=== PATIENT | female | born 1945 | race Caucasian/White ===

== ENCOUNTER → 2024-07-28 14:58 | Outpatient (BNVA) | payer BC, SELFPAY | PROVIDERS: Referring Provider Specialist; Visit Provider Internal Medicine Cardiovascular Disease | DX: R07.9 Chest pain, unspecified (principal) | CPT/HCPCS: 93005 ==

== ENCOUNTER 2024-09-05 09:17 | Emergency (ER) | payer MEDICARE, SELFPAY ==
[2024-09-05 09:21] VITALS: BP 129/54; PULSE 74; RESP 18; TEMP 36.7; O2SAT 98; BMI 29.2
[2024-09-05 09:27] LABS: Glucose Point of Care 111 mg/dL (70-110)
--- NOTE | 2024-09-05 09:30 | CTR_ITS ---
PROCEDURE INFORMATION: Exam: CT Head Without Contrast Exam date and time: 09/05/2024 10:15 AM Age: 79 years old Clinical indication: Dizziness TECHNIQUE: Imaging protocol: Computed tomography of the head without contrast. Radiation optimization: All CT scans at this facility use at least one of these dose optimization techniques: automated exposure control; mA and/or kV adjustment per patient size (includes targeted exams where dose is matched to clinical indication); or iterative reconstruction. COMPARISON: No relevant prior studies available. RADIATION DOSE METRICS: Total DLP (mGy-cm): 1028.08 FINDINGS: Brain: There are bilateral periventricular white matter and centrum semiovale hypodensities, consistent with chronic ischemic small vessel disease. 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 No recent infarct, intracranial bleed or mass effect. Cerebral ventricles: No ventriculomegaly. Paranasal sinuses: Visualized sinuses are unremarkable. No fluid levels. Mastoid air cells: Visualized mastoid air cells are well aerated. Orbital cavities: Post bilateral cataract surgery. Bones: Unremarkable. No acute fracture. Soft tissues: Unremarkable. CT/CT head wo con* [id number] IMPRESSION: No large territorial infarct or intracranial bleed.
--- NOTE | 2024-09-05 09:31 | W.ED.WEAKNES ---
HPI - Weakness General: Chief complaint: Weakness Stated complaint: stroke like symptoms Time Seen by Provider: 09/05/24 09:19 History of Present Illness: 79-year-old female presents with some dizziness not feeling well with generalized weakness and malaise for couple days. She initially thought had some do at her inner ear and today when she got up she is kind of weak reports she has a weakness in her right leg and kind of fell get out of bed. She denies any injury when she fell. She was able to get up on her own, drive and walk in the ER without any difficulty. Patient is concerned because she has had stroke recently in the last year and just wants to be evaluated. Associated symptoms: Denies chest pain, fever(s), headache(s), nausea or vomiting Review of Systems Const: Reports: fatigue and malaise; Denies: fever(s) Card: Denies: chest pain or palpitations Resp: Denies: dyspnea GI: Denies: abdominal pain, nausea or vomiting : Denies: flank pain or difficulty voiding Skin/Breast: Denies: rash Neuro: Reports: dizziness; Denies: headache(s) or Slurred speech present [facility] PFSH: Medical History Bradycardia Social History Smoking and tobacco/nicotine status: never used tobacco/nicotine Physical Exam Const: COMMON NORMALS: no acute distress, average body habitus, patient oriented x3 and alert HENMT: COMMON NORMALS: atraumatic HEAD & SCALP: normal to inspection and atraumatic Eye: COMMON NORMALS: Equal, round and reactive pupils present and EOMs intact bilaterally PUPIL: Yes Equal, round and reactive pupils present Resp: COMMON NORMALS: normal respiratory effort, No use of accessory muscles and clear to auscultation bilaterally AUSCULTATION: clear to auscultation bilaterally Cardio: COMMON NORMALS: regular rate RATE: regular rate Extremity: COMMON NORMALS: normal to inspection, full ROM and capillary refill normal Neuro: COMMON NORMALS: patient oriented x3, CN's II-XII intact bilaterally, moves all extremities, no focal motor deficits, no sensory deficits noted and gait normal SENSORIUM/ORIENTATION: Yes alert OTHER: NIH 0 Psych: COMMON NORMALS: mental status grossly normal and speech normal SPEECH: Yes normal speech Skin: COMMON NORMALS: no rashes or lesions noted and turgor normal GENERAL SKIN EXAM: no rashes or lesions noted and turgor normal Course Vital Signs: Vital signs: Vital Signs Temperature 98.1 F 09/05/24 09:21 Pulse Rate 59 L 09/05/24 11:00 Respiratory Rate 18 09/05/24 09:21 Blood Pressure 113/56 09/05/24 11:00 Pulse Oximetry 97 09/05/24 11:00 Oxygen Delivery Me thod Room Air 09/05/24 11:00 MDM - Weakness Medical Decision Making Patient diagnostic studies ordered reviewed interpreted by me. Patient CT CTA labs all showed no acute finding. Patient had a NIH score is 0 with no significant findings noted. Patient ambulated in ambulated in the ER without difficulty. There is no signs of TIA or stroke noted. She does complain of some dizziness. I suspect is likely viral as we have seen a significant mount of viral syndrome recently. I did recommend she follows with her primary care provider, neurologist and [facility] to continue further outpatient evaluation. She is stable and discharged home Lab Data 09/05/24 09:41 09/05/24 09:[address] 09/05/24 09:30 IMPRESSION: No large territorial infarct or intracranial bleed. Head/Neck CTA 09/05/24 10:55 IMPRESSION: No large vessel occlusion. IMPRESSION: No significant arterial stenosis. REFERENCES: NASCET CRITERIA. The degree of stenosis in the cervical segment of the internal carotid artery is based on NASCET criteria. Normal is no stenosis. Mild is less than 50% stenosis. Moderate is 50-69% stenosis. Severe is 70% to 99% stenosis. Total occlusion is no detectable patent lumen. Laboratory Results WBC 10.96 10^3/uL (3.29-11.43) 09/05/24 09:41 RBC 3.91 10^6/uL (3.85-5.65) 09/05/24 09:41 Hgb 11.40 g/dL (11.27-16.99) 09/05/24 09:41 Hct 35.5 % (36-47) L 09/05/24 09:41 MCV 90.8 fl (85-98) 09/05/24 09:41 MCH 29.2 pg (27-33) 09/05/24 09:41 MCHC 32.1 g/dL (30-55) 09/05/24 09:41 RDW 13.5 % (12.1-15.1) 09/05/24 09:41 Plt Count 316 10^3/cmm (157-399) 09/05/24 09:41 MPV 10.0 fL (7.4-10.4) 09/05/24 09:41 Neut % (Auto) 58.9 % 09/05/24 09:41 Lymph % (Auto) 26.9 % 09/05/24 09:41 [place] % (Auto) 6.2 % 09/05/24 09:41 Eos % (Auto) 5.7 % 09/05/24 09:41 Baso % (Auto) 0.7 % 09/05/24 09:41 Neut # (Auto) 6.45 10^3/uL (1.8-7.7) 09/05/24 09:41 Lymph # (Auto) 3.0 10^3/uL (0.8-4.8) 09/05/24 09:41 [place] # (Auto) 0.7 10^3/uL (0.2-0.9) 09/05/24 09:41 Eos # (Auto) 0.6 10^3/uL (0.0-0.8) 09/05/24 09:41 Baso # (Auto) 0.1 10^3/uL (0.0-0.1) 09/05/24 09:41 Nucleated RBC % (auto) 0 % 09/05/24 09:41 Nucleated RBCs # 0.0 /100WBC 09/05/24 09:41 Sodium 136 mmol/L (136-145) 09/05/24 09:41 Potassium 3.9 mmol/L (3.5-5.1) 09/05/24 09:41 Chloride 99 mmol/L (98-107) 09/05/24 09:41 Carbon Dioxide 23 mmol/L (22-29) 09/05/24 09:41 Anion Gap 17.9 (5-19) 09/05/24 09:41 BUN 13 mg/dL (8-23) 02/16/25 09:41 Creatinine 1.0 mg/dL (0.5-0.9) H 09/05/24 09:41 GFR Calculation Not Reportable 09/05/24 09:41 Glucose 97 mg/dL (65-115) 09/05/24 09:41 POC Glucose 111 mg/dL (70-110) H 09/05/24 09:23 Calculated Osmolality 282 mOsm/kg (285-295) L 09/05/24 09:41 Calcium 9.8 mg/dL (8.5-10.5) 09/05/24 09:41 Magnesium 2.0 mg/dL (1.7-2.3) 09/05/24 09:41 Total Bilirubin 0.2 mg/dL (0.15-1.2) 09/05/24 09:41 AST 23 U/L (0-32) 09/05/24 09:41 ALT 18 U/L (0-33) 09/05/24 09:41 Alkaline Phosphatase 94 U/L (35-105) 09/05/24 09:41 Total Protein 7.2 g/dL (6.6-8.7) 09/05/24 09:41 Albumin 3.8 g/dL (3.5-5.2) 09/05/24 09:41 Globulin 3.4 g/dL (1.3-4.6) 09/05/24 09:41 Urine Color Yellow (Yellow) 09/05/24 11:33 Urine Appearance Clear (CLEAR) 09/05/24 11:33 Urine pH 7.0 (5-7) 09/05/24 11:33 Ur Specific [place] 1.007 (1.005-1.030) 09/05/24 11:33 Urine Protein Negative (Negative) 09/05/24 11:33 Urine Glucose (UA) Negative (Normal) 09/05/24 11:33 Urine Ketones Negative (Negative) 09/05/24 11:33 Urine Blood Negative (Negative) 09/05/24 11:33 Urine Nitrate Negative (Negative) 09/05/24 11:33 Urine Bilirubin Negative (Negative) 09/05/24 11:33 Urine Urobilinogen 0.2 mg/dL (Negative) 09/05/24 11:33 Ur Leukocyte Esterase Negative (Negative) 09/05/24 11:33 Amorphous Sediment Not Reportable 09/05/24 11:33 Coronavirus (PCR) Negative (Negative) 09/05/24 09:37 Influenza A (PCR) Negative (Negative) 09/05/24 09:37 Influenza Type B (PCR) Negative (Negative) 09/05/24 09:37 RSV (PCR) Negative (Negative) 09/05/24 09:37 All radiology interpretation(s) finalized by discharge Discharge Plan Discharge Patient Disposition: Home Clinical Impression: Dizziness, Viral syndrome Condition: Stable Prescriptions: No Action nifedipine 30 mg tablet extended release 30 mg PO DAILY losartan 25 mg tablet 25 mg PO DAILY levothyroxine 100 mcg tablet 100 mcg PO DAILY escitalopram oxalate 10 mg tablet 10 mg PO DAILY aspirin 81 mg tablet,delayed release (DR/EC) 81 mg PO DAILY Fish Oil 100-160-1,000 mg capsule 1 cap PO QAM ascorbic acid (vitamin C) 500 mg capsule 500 mg PO QPM potassium gluconate 550 mg (90 mg) Tablet 550 mg PO DAILY cetirizine [Zyrtec] 10 mg Tablet 10 mg PO DAILY PRN (Reason: allergies) niacin 100 mg Tablet 100 mg PO DAILY vitamin B complex-folic acid [B Complex 1 (with folic acid)] 0.4 mg Tablet 1 tab PO DAILY wang extract 500 mg Capsule 500 mg PO QPM resveratrol 100 mg Capsule 100 mg PO QPM selenium 200 mcg Capsule 200 mcg PO QPM One-A-Day Women's 50 Plus 400 mcg-500 mg calcium-20 mcg Tablet 1 tab PO QAM calcium carb-mag ox-zinc gluc 333-133-5 mg Tablet 1 tab PO QPM ginkgo biloba leaf extract 60 mg Tablet 60 mg PO BID Rx Instructions: give with meal/snack vitamin K2 100 mcg Capsule 100 mcg PO QPM turmeric root extract 500 mg Tablet 500 mg PO QPM Ocuvite Adult 50 Plus 250 mg (90 mg-160 mg) Capsule 1 cap PO QPM kye root extract 15 mg Tablet,Chewable 15 mg PO QPM berberine chloride 500 mg Capsule 500 mg PO QPM Discharge Orders: Discharge ED (Routine); Ordered 09/05/24 Ordered By: Jona Heath Discharge Diet: Usual diet Discharge Activity: Increase activity as tolerated Patient Instructions: Opioid Safety, Pain Management, Dizziness (ED) Activity Restrictions/Additional Instructions: You may try kwhy-voc-gtpbkjv meclizine to help with the feeling of dizziness and be sure you are drinking plenty of fluids. Please follow-up with your primary care provider and consider follow-up with your cardiology and neurologist next week. Please return to the ER with any concerns. Print Language: [place] Island[place] Coding Level of Care Code ED Softball Winder for Chg Fwd Related Data Home Medications ?Medication ?Instructions ?Recorded ?Confirmed aspirin 81 mg tablet,delayed 81 mg PO DAILY 05/26/24 09/05/24 release escitalopram oxalate 10 mg tablet 10 mg PO DAILY 05/26/24 09/05/24 levothyroxine 100 mcg tablet 100 mcg PO DAILY 05/26/24 09/05/24 losartan 25 mg tablet 25 mg PO DAILY 05/26/24 09/05/24 nifedipine 30 mg tablet,extended 30 mg PO DAILY 05/26/24 09/05/24 release ascorbic acid (vitamin C) 500 mg 500 mg PO QPM 07/28/24 09/05/24 capsule omega 5-gtk-vym-fish oil 100 1 cap PO QAM 07/28/24 09/05/24 mg-160 mg-1,000 mg capsule (Fish Oil) berberine chloride 500 mg capsule 500 mg PO QPM 09/05/24 09/05/24 calcium 333 mg 1 tab PO QPM 09/05/24 09/05/24 (carbonate)-magnesium 133 mg (oxide)-zinc 5 mg tablet cetirizine 10 mg tablet (Zyrtec) 10 mg PO DAILY PRN allergies 09/05/24 09/05/24 kye root extract 15 mg chewable 15 mg PO QPM 09/05/24 09/05/24 tablet ginkgo biloba leaf extract 60 mg 60 mg PO BID 09/05/24 09/05/24 tablet wang extract 500 mg capsule 500 mg PO QPM 09/05/24 09/05/24 wyjfqudn-fsd-zvnwu ac 400 1 tab PO QAM 09/05/24 09/05/24 mcg-calcium carb 500 mg-vit K1 20 mcg tablet xnkmpwdf-gso-cdyrx3 250 mg-dha 90 1 cap PO QPM 09/05/24 09/05/24 mg-epa 160 fq-alur-hewp-zeax capsule (Ocuvite Adult 50 Plus) niacin 100 mg tablet 100 mg PO DAILY 09/05/24 09/05/24 potassium gluconate 550 mg (90 mg) 550 mg PO DAILY 09/05/24 09/05/24 tablet resveratrol 100 mg capsule 100 mg PO QPM 09/05/24 09/05/24 selenium 200 mcg capsule 200 mcg PO QPM 09/05/24 09/05/24 turmeric root extract 500 mg tablet 500 mg PO QPM 09/05/24 09/05/24 vitamin B complex-folic acid 0.4 1 tab PO DAILY 09/05/24 09/05/24 mg tablet (B Complex 1 (with folic acid)) vitamin K2 100 mcg capsule 100 mcg PO QPM 09/05/24 09/05/24 Allergies Allergy/AdvReac Type Severity Reaction Status Date / Time Sulfa (Sulfonamide Allergy ALGY-Hives Verified 07/28/24 14:54 Antibiotics)
[2024-09-05 09:48] LABS: Basophils # 0.1 10^3/uL (0.0-0.1); Basophils % 0.7 %; Eosinophils # 0.6 10^3/uL (0.0-0.8); Eosinophils % 5.7 %; Hematocrit 35.5 % (36-47); Lymphocytes % 26.9 %; Mean Corpuscular HGB Conc 32.1 g/dL (30-55); Mean Corpuscular Hemoglobin 29.2 pg (27-33); Mean Corpuscular Volume 90.8 fl (85-98); Monocytes # 0.7 10^3/uL (0.2-0.9); Monocytes % 6.2 %; Neutrophils # 6.45 10^3/uL (1.8-7.7); Neutrophils % 58.9 %; Nucleated Red Blood Cells % 0 %; Platelet Count 316 10^3/cmm (157-399); Red Blood Count 3.91 10^6/uL (3.85-5.65); Red Cell Distribution Width 13.5 % (12.1-15.1); White Blood Count 10.96 10^3/uL (3.29-11.43)
[2024-09-05 10:08] LABS: Alanine Aminotransferase 18 U/L (0-33); Albumin Level 3.8 g/dL (3.5-5.2); Alkaline Phosphatase 94 U/L (35-105); Aspartate Amino Transferase 23 U/L (0-32); Blood Urea Nitrogen 13 mg/dL (8-23); Calcium 9.8 mg/dL (8.5-10.5); Carbon Dioxide 23 mmol/L (22-29); Chloride 99 mmol/L (98-107); Creatinine Clr Calc Pharmacy 43.4755; Globulin 3.4 g/dL (1.3-4.6); Glucose 97 mg/dL (65-115); Osmolality Calculated 282 mOsm/kg (285-295); Sodium 136 mmol/L (136-145); Total Bilirubin 0.2 mg/dL (0.15-1.2); Total Protein 7.2 g/dL (6.6-8.7)
[2024-09-05 10:09] LABS: Anion Gap 17.9 (5-19); Potassium 3.9 mmol/L (3.5-5.1)
--- NOTE | 2024-09-05 10:16 | PC.PHAR ---
pt has a long list of otc supplements she takes daily, added to list
[2024-09-05 10:23] LABS: Influenza A NEGATIVE (Negative); Influenza B NEGATIVE (Negative); Respiratory Syncytial Virus Ce NEGATIVE (Negative); SARS-CoV-2 PCR NEGATIVE (Negative)
[2024-09-05 10:30] VITALS: BP 108/63; PULSE 63; O2SAT 98
--- NOTE | 2024-09-05 10:55 | CTR_ITS ---
PROCEDURE INFORMATION: Exam: CTA Head With Contrast, Arteriography Exam date and time: 09/05/2024 11:13 AM Age: 79 years old Clinical indication: Dizziness and giddiness and headache and weakness; Additional info: TIA TECHNIQUE: Imaging protocol: Computed tomographic angiography of the head with contrast. Exam focused on the arteries. 3D rendering (Not supervised by radiologist): MIP and/or 3D reconstructed images were created by the technologist. Radiation optimization: All CT scans at this facility use at least one of these dose optimization techniques: automated exposure control; mA and/or kV adjustment per patient size (includes targeted exams where dose is matched to clinical indication); or iterative reconstruction. Contrast material: OMNIPAQUE 350; Contrast volume: 100 ml; Contrast route: INTRAVENOUS (IV); COMPARISON: CT head wo con* [id number] 09/05/2024 10:15 AM RADIATION DOSE METRICS: Total DLP (mGy-cm): 409.47 FINDINGS: ANTERIOR CIRCULATION: Right internal carotid artery: Intracranial segment is patent with no significant stenosis. No aneurysm. Right middle cerebral artery: No occlusion or significant stenosis. No aneurysm. Right anterior cerebral artery: No occlusion or significant stenosis. No aneurysm. Left internal carotid artery: Intracranial segment is patent with no significant stenosis. No aneurysm. Left middle cerebral artery: No occlusion or significant stenosis. No aneurysm. Left anterior cerebral artery: No occlusion or significant stenosis. No aneurysm. POSTERIOR CIRCULATION: Right vertebral artery: No occlusion or significant stenosis. No aneurysm. Left vertebral artery: No occlusion or significant stenosis. No aneurysm. Basilar artery: No occlusion or significant stenosis. No aneurysm. Right posterior cerebral artery: No occlusion or significant stenosis. No aneurysm. Left posterior cerebral artery: No occlusion or significant stenosis. No aneurysm. Brain: There are bilateral periventricular white matter and centrum semiovale hypodensities, consistent with chronic ischemic small vessel disease. No recent infarct, intracranial bleed or mass effect. Cerebral ventricles: No ventriculomegaly. Bones/joints: Unremarkable. No acute fracture. Soft tissues: Unremarkable. PROCEDURE INFORMATION: Exam: CTA Neck With Contrast Exam date and time: 09/05/2024 11:13 AM Age: 79 years old Clinical indication: Dizziness and giddiness and headache and weakness; Additional info: TIA TECHNIQUE: Imaging protocol: Computed tomographic angiography of the neck with contrast. Exam focused on the cervical segments of the vasculature. 3D rendering (Not supervised by radiologist): MIP and/or 3D reconstructed images were created by the technologist. Radiation optimization: All CT scans at this facility use at least one of these dose optimization techniques: automated exposure control; mA and/or kV adjustment per patient size (includes targeted exams where dose is matched to clinical indication); or iterative reconstruction. Contrast material: OMNIPAQUE 350; Contrast volume: 100 ml; Contrast route: INTRAVENOUS (IV); COMPARISON: CT head wo [facility]* [id number] 09/05/2024 10:15 AM RADIATION DOSE METRICS: Total DLP (mGy-cm): 409.47 FINDINGS: Right common carotid artery: Calcified atheroma of the right carotid bulb but no significant stenosis. Right internal carotid artery: No stenosis of the extracranial segment. No dissection or occlusion. Right external carotid artery: No occlusion or stenosis of the origin. Left common carotid artery: Calcified atheroma of the left carotid bulb but no significant stenosis. Left internal carotid artery: No stenosis of the extracranial segment. No dissection or occlusion. Left external carotid artery: No occlusion or stenosis of the origin. Right vertebral artery: No stenosis. No dissection or occlusion. Left vertebral artery: No stenosis. No dissection or occlusion. Soft tissues: Normal. No significant soft tissue swelling. Bones/joints: The cervical spine demonstrates mild degenerative changes at multiple levels. CPPD changes around the dens with moderate degenerative disease. Lungs: Fibrotic changes in bilateral lung apices. CT/CT angio headneck* [id number] IMPRESSION: No large vessel occlusion. IMPRESSION: No significant arterial stenosis. REFERENCES: NASCET CRITERIA. The degree of stenosis in the cervical segment of the internal carotid artery is based on NASCET criteria. Normal is no stenosis. Mild is less than 50% stenosis. Moderate is 50-69% stenosis. Severe is 70% to 99% stenosis. Total occlusion is no detectable patent lumen.
[2024-09-05 11:00] VITALS: BP 113/56; PULSE 59; O2SAT 97
[2024-09-05] MEDS: iohexol 350 mg/mL 500 mL Btl (per mL) IV (11:23)
[2024-09-05 11:56] LABS: Bilirubin Urine Negative (Negative); Blood Urine Negative (Negative); Glucose Urine UA Negative (Normal); Ketones Urine Negative (Negative); Leukocyte Esterase Urine Negative (Negative); Nitrate Urine Negative (Negative); Protein Urine Negative (Negative); Specific Gravity, Urine 1.007 (1.005-1.030); Urine Appearance Clear (CLEAR); Urine Color Yellow (Yellow); Urobilinogen Urine 0.2 mg/dL (Negative)
[2024-09-05 12:01] LABS: Add Urine Microscopic? YES; Bacteria Urine None Seen /hpf; Hyaline Casts Urine 0-4 /lpf; RBC Urine 0-2 /hpf (0-2); Squamous Epithelial Cell Urine 0-5 /hpf (0-5); WBC Urine 0-5 /hpf (0-5)
[2024-09-05 12:10] LABS: UA Slide Review UA Slide Review Perf
[2024-09-05 12:19] VITALS: BP 122/48; PULSE 70; O2SAT 99
== END 2024-09-05 12:20 | disposition home or self-care (01) ==
PROVIDERS: Emergency Provider Student in an Organized Health Care Education/Training Program
DX: R42 Dizziness and giddiness (principal); B34.9 Viral infection, unspecified; Z11.52 Encounter for screening for COVID-19
CPT/HCPCS: 36416; 70450; 70496; 70498; 80053; 81001; 82962; 83735; 85025; 87637; 99285

== ENCOUNTER 2024-09-22 12:29 | Outpatient (CLI) | payer MEDICARE, SELFPAY ==
--- NOTE | 2024-09-22 12:45 | USCV_ITS ---
Adela Phillip Age: 79 Gender: F : 1945 Exam Date: 09/22/2024 12:51 Ordering Phys: Keshav Berger MD ([email or web address]) Technologist: CT [place] [facility] [place]ication: cva BP: 178 / 60 HR: 67 Rhythm: Sinus Technical Quality: Adequate MEASUREMENTS (Male / Female) Normal Values 2D ECHO LVOT Diameter 2.0 cm LV Ejection Fraction MOD 4C 63.4 % LV Ejection Fraction MOD 2C 59.5 % LV Ejection Fraction 2C AL 61.8 % LA Diameter 2.4 cm RA Systolic Volume 4C AL 38.9 ml RA Systolic Volume 4C MOD 36.6 ml LA Sys Volume AL 52.9 cm cubed LA Sys Volume Index AL 28.3 cm cubed/m squared Aorta at Sinotubular Diameter 2.0 cm IVC Diameter 1.6 cm M-MODE LA Ao Ratio MM 1.7 AV Cusp Separation MM 1.9 cm DOPPLER AV Peak Velocity 113.0 cm/s LVOT Peak Velocity 120.0 cm/s AV Area Cont Eq vti 3.5 cm squared AV Area Cont Eq pk 3.2 cm squared MV Peak Velocity 118.0 cm/s MV Area PHT 3.9 cm squared Mitral E to A Ratio 1.7 TR Peak Velocity 286.0 cm/s TR Peak Gradient 32.7 mmHg TR Mean Velocity 198.0 cm/s TR Mean Gradient 18.5 mmHg TR Velocity Time Integral 96.8 cm TV Peak E Velocity 82.0 cm/s PV Peak Velocity 101.0 cm/s FINDINGS Left Ventricle Normal left ventricular size, systolic function and wall thickness, with no regional wall motion abnormalities. Left ventricular ejection fraction is estimated at 60 %. Grade I/IV diastolic dysfunction (abnormal relaxation filling pattern), normal to mildly elevated filling pressures. Right Ventricle The right ventricle is normal in size and function. Right Atrium The right atrium is normal in size. Left Atrium The left atrium is normal in size. Mitral Valve Moderately thickened mitral valve. No mitral valve stenosis. Mild mitral valve regurgitation. Aortic Valve Mild aortic valve calcification. No aortic valve stenosis. Trace aortic valve regurgitation. Tricuspid Valve Trace tricuspid valve regurgitation. Pulmonic Valve Structurally normal pulmonic valve without significant stenosis. There is no pulmonic regurgitation. Pericardium Normal pericardium without effusion. Aorta Normal ascending aorta dimension. IVC The inferior vena cava appears normal. CONCLUSIONS Normal left ventricular size, systolic function and wall thickness, with no regional wall motion abnormalities. Left ventricular ejection fraction is estimated at 60 %. Grade I/IV diastolic dysfunction (abnormal relaxation filling pattern), normal to mildly elevated filling pressures. Moderately thickened mitral valve. No mitral valve stenosis. Mild mitral valve regurgitation. There is no pericardial effusion. Right atrial pressure is around 5 mm of mercury. Keshav Berger MD (Electronically Signed) Final Date: 22 September 2024 22:34 S
== END 2024-09-22 12:30 | disposition home or self-care (01) ==
LOC: RAD 12:31
PROVIDERS: PCP Family Medicine; Visit Provider Internal Medicine Cardiovascular Disease
DX: I63.9 Cerebral infarction, unspecified (principal); R93.1 Abnormal findings on diagnostic imaging of heart and coronary circulation; I34.0 Nonrheumatic mitral (valve) insufficiency; I35.8 Other nonrheumatic aortic valve disorders
CPT/HCPCS: C8929

== ENCOUNTER 2024-09-23 06:00 | Outpatient (CLI) | payer MEDICARE, SELFPAY ==
--- NOTE | 2024-09-23 12:32 | USCV_ITS ---
Adela Phillip Age: 79 Gender: F : 1945 Exam Date: 09/23/2024 15:27 Ordering Phys: Keshav Berger MD ([email or web address]) Technologist: MARIALUISA [place] [facility] [place]: CVA Risk Factors: Previous Vascular Surgery: Right Brachial BP: / Left Brachial BP: / Right Left Velocity (cm/s) Spectral Plaque Velocity (cm/s) Spectral Plaque Syst/Diast Broadening Syst/Diast Broadening 90.40/ 12.40 Prox CCA 72.10 / 18.20 95.40/ 12.40 Mid CCA 67.60 / 17.10 80.40/ 20.30 Distal CCA 71.00 / 14.10 56.40/ 17.10 Prox ICA 54.10 / 22.20 70.10/ 23.40 Mid ICA 81.10 / 28.50 59.90/ 15.80 Distal ICA 67.70 / 22.70 107.00 ECA 88.90 0.70 ICA/CCA 0.80 Antegrade Vertebral Antegrade 43.70/ 11.40 cm/s 51.30/ 14.20 cm/s Tri Subclavian Tri 86.90 132.0 0 FINDINGS Comparison: none available. No significant elevation of systolic or diastolic velocities. Waveforms are normal. Mild calcified plaque in the caotid arteries. Antegrade vertebral arteries. CONCLUSIONS Bilateral ICA stenosis less than 50%. Dr. Mayte Romero DO (Electronically Signed) Final Date: 24 September 2024 09:56 S
== END 2024-09-23 06:01 | disposition home or self-care (01) ==
LOC: RAD 09-24 12:11
PROVIDERS: PCP Family Medicine; Visit Provider Internal Medicine Cardiovascular Disease
DX: I63.9 Cerebral infarction, unspecified (principal); I65.23 Occlusion and stenosis of bilateral carotid arteries
CPT/HCPCS: 93880

== ENCOUNTER → 2024-10-12 08:29 | Outpatient (BNVA) | payer MEDICARE, SELFPAY | PROVIDERS: PCP Family Medicine; Visit Provider Nurse Practitioner Family | DX: I63.81 Other cerebral infarction due to occlusion or stenosis of small artery (principal); R00.1 Bradycardia, unspecified; R06.02 Shortness of breath; I47.20 Ventricular tachycardia, unspecified | CPT/HCPCS: 99214 ==

== ENCOUNTER 2024-11-03 08:43 | Outpatient (CLI) | payer MEDICARE, SELFPAY ==
--- NOTE | 2024-11-03 | ECG_ITS ---
[facility] Test Date: 2024-11-03 Pat Name: Adela Phillip Department: Room: Gender: Female Utility Operator: : 1945 Requested By: Cyndi Mckeon Order Number: [id number] [place] MD: FUAD SORENSON Interpretive Statements Lung unchanged pre/post procedure; Intraprocedure shortess of breath; Symptoms resoled by discharge NOTE: Please note that this is the electrocardiogram portion of the Lexiscan/Sestamibi stress test. The perfusion scan will be documented separately. DATA: Baseline heart rate was 60 beats per minute. Baseline blood pressure was 154/82 millimeters of mercury. Target heart rate was 136. Maximum heart rate achieved was 80. which was 58 % of the predicted target heart rate. Maximum blood pressure was 158/82 millimeters of mercury. The reason for ending the test was completion of the protocol. The patient did not experience any symptoms. ELECTROCARDIOGRAM: BASELINE: Sinus rhythm. Normal axis. Otherwise, no ST-T changes suggestive of ischemia noted. No arrhythmia noted. EXERCISE: After Lexiscan injection, no ST-T changes suggestive of ischemic noted. No arrhythmia noted. CONCLUSION: Please note due to baseline abnormality of the EKG specificity and sensitivity of the EKG portion of LexiScan MIBI stress test will be low 1. EKG not suggestive of ischemia 2. Lexiscan injection unremarkable. 3. Perfusion scan will be documented separately. Electronically Signed On 11-23-2024 18:12:38 CDT by FUAD SORENSON [email or web address]
[2024-11-03 08:51] VITALS: BMI 28.3
--- NOTE | 2024-11-03 08:55 | NMCV_ITS ---
NM estelita perf SPECT r/s* [id number] Adela Phillip Age: 79 Gender: F : 1945 Exam Date: 11/03/2024 10:03 Ordering Phys: Cyndi Mckeon NP Technologist: DARNELL Avila Exam Location: [facility] Indications: cp STRESS TEST Please see separate stress test report in [facility] for full findings IMAGE PROTOCOL Rest/Stress 1 Lexiscan Day Radiopharmaceutical Dose (mCi) Administration Site Administered by Rest: Tc-99m 10.6 IV Maggie Galvin, COMMUNITY SERVICE REPRESENTATIVE Sestamibi Stress:Tc-99m 32.2 IV Maggie Holcombgle, COMMUNITY SERVICE REPRESENTATIVE Sestamibi Rest: 03-Nov-2024 60 Discovery 630 Stress: 03-Nov-2024 30 Discovery 630 0.4mg Lexiscan. Images obtained in supine and prone position. SPECT RESULTS Technical Quality: Good Raw Data Analysis: Normal Image Corrections: No attenuation or motion correction applied Summed Stress Score: 0 Summed Rest Score: 6 Summed Difference Score: 0 PERFUSION FINDINGS SPECT images demonstrate homogeneous tracer distribution throughout the myocardium. FUNCTIONAL RESULTS (calculated via Gated SPECT) Stress Image LV EF (%): 85 Stress EDV (mL):65 TID: 1.1 Stress ESV (mL):10 FUNCTIONAL FINDINGS: There is normal left ventricular systolic function. IMPRESSIONS Myocardial perfusion imaging is normal. Keshav Berger MD (Electronically Signed) Final Date: 04 November 2024 12:12 S
[2024-11-03 11:51] VITALS: BP 153/84; PULSE 98
== END 2024-11-03 08:44 | disposition home or self-care (01) ==
LOC: CDL 08:45
PROVIDERS: PCP Family Medicine; Visit Provider Nurse Practitioner Family
DX: R07.9 Chest pain, unspecified (principal)
CPT/HCPCS: 36415; 78452; 93017; A9500

== ENCOUNTER → 2025-01-25 10:47 | Outpatient (BNVA) | payer MEDICARE, SELFPAY | PROVIDERS: PCP Family Medicine; Visit Provider Internal Medicine Cardiovascular Disease | DX: I10 Essential (primary) hypertension (principal); I49.3 Ventricular premature depolarization; I47.20 Ventricular tachycardia, unspecified; Z79.82 Long term (current) use of aspirin; Z86.73 Personal history of transient ischemic attack (TIA), and cerebral infarction without residual deficits | CPT/HCPCS: 99214 ==